=== PATIENT | male | born 1955 | race African-American/Black ===

== ENCOUNTER 2018-09-17 05:05 | Inpatient (IN) ==
[2018-09-08 12:52] LABS: Basophils % 0.4 % (0.0-0.8); Eosinophils # 0.2 10*3/uL (0.0-0.87); Eosinophils % 2.9 % (0.00-10.9); Hematocrit 49.7 VOL% (42.0-52.0); Hemoglobin 16.3 GM/DL (14.0-18.0); Immature Granulocytes % 0.2 %; Immature Granulocytes Absolute 0.01 #; Lymphocytes # 1.2 10*3/uL (1.4-4.0); Lymphocytes % 23.6 % (21.2-54.2); Mean Corpuscular HGB Conc 32.8 GM/DL (32-36); Mean Corpuscular Volume 86.4 FL (87-102); Mean Platelet Volume 10.7 FL (9.6-12.0); Monocytes % 8.6 % (1.7-12.7); Neutrophils % 64.3 % (38.7-73.9); Platelet Count 217 T/CUMM (130-400); Red Blood Count 5.75 MC/CUMM (3.8-5.5); Red Cell Distribution Width 13.6 % (9.3-17.3); White Blood Count 5.1 T/CUMM (4-12)
[2018-09-08 13:12] LABS: Calcium 9.4 MG/DL (8.5-10.1); Osmolality,Calculated 279.5 MOS/KG (273-304)
[2018-09-08 13:13] LABS: Apearance,Urine CLEAR (Clear); Bacteria,Urine Occasional /HPF (Few); Bilirubin,Urine Negative (Negative); Blood, Urine Negative (Negative); Glucose,Urine (UA) Negative (Negative); Hyaline Casts,Urine 4 /LPF (0-3); Ketones,Urine Negative (Negative); Mucus,Urine Few /LPF (Occasional); Nitrite,Urine Negative (Negative); Protein,Urine 100 MG/DL; RBC,Urine <1 /HPF (0-4); Squamous Epithelial Cell,Urine Occasional /HPF (0-10); Urine Color Yellow (Yellow); Urine Specific Gravity 1.021 (1.001-1.035); Urine Urobilinogen < 2.0 EU/DL (0.2-1.0); WBC,Urine 2 /HPF (0-6)
[~2018-09-17 05:05] MED LIST: NALOXONE 0.4 MG/ML VIAL IV PRN
[2018-09-17] MEDS ORDERED: cefTRIAXone 1,000 MG VIAL ONE (05:55)
[2018-09-17] MEDS ORDERED: FAMOTIDINE 20 MG TABLET ONE (05:55)
[2018-09-17] MEDS ORDERED: ALVIMOPAN 12 MG CAPSULE ONE (05:55)
[2018-09-17] MEDS ORDERED: ALVIMOPAN 12 MG CAPSULE PO ONE (06:00)
[2018-09-17] MEDS ORDERED: LACTATED RINGERS 1,000 ML IV SCH (06:00)
[2018-09-17] MEDS ORDERED: FAMOTIDINE 20 MG TABLET PO ONE (06:00)
[2018-09-17] MEDS ORDERED: cefTRIAXone 1,000 MG in SYRINGE 1 EACH IV ONE (06:00)
[2018-09-17] MEDS ORDERED: PROPOFOL 200 MG/20 ML VIAL IV ONE (09:47)
[2018-09-17] MEDS ORDERED: SEVOFLURANE 1 UNIT/15 MINUTE INH ONE (09:47)
[2018-09-17 09:48] LABS: Apearance,Urine CLEAR (Clear); Bilirubin,Urine Negative (Negative); Blood, Urine Negative (Negative); Glucose,Urine (UA) Negative (Negative); Ketones,Urine Negative (Negative); Mucus,Urine Occasional /LPF (Occasional); Nitrite,Urine Negative (Negative); Protein,Urine 30 MG/DL; RBC,Urine 1 /HPF (0-4); Urine Color Yellow (Yellow); Urine Specific Gravity 1.018 (1.001-1.035); Urine Urobilinogen < 2.0 EU/DL (0.2-1.0); WBC,Urine <1 /HPF (0-6)
[2018-09-17] MEDS ORDERED: ACETAMINOPHEN 1,000 MG/100 ML VIAL IV ONE (09:48)
[2018-09-17] MEDS ORDERED: ePHEDrine 50 MG/ML AMP ONE (09:48)
[2018-09-17] MEDS ORDERED: ONDANSETRON 4 MG/2 ML VIAL ONE (09:48)
[2018-09-17] MEDS ORDERED: GLYCOPYRROLATE 0.4 MG/2 ML VIAL ONE (09:48)
[2018-09-17] MEDS ORDERED: MIDAZOLAM 2 MG/2 ML VIAL ONE (09:48)
[2018-09-17] MEDS ORDERED: DEXAMETHASONE 4 MG/1 ML VIAL ONE (09:48)
[2018-09-17] MEDS ORDERED: ROCURONIUM 100 MG/10 ML VIAL IV ONE (09:48)
[2018-09-17] MEDS ORDERED: NEOSTIGMINE 10 MG/10 ML VIAL ONE (09:49)
[2018-09-17] MEDS ORDERED: LACTATED RINGERS 1,000 ML IV ONE (09:49)
[2018-09-17] MEDS ORDERED: HYDROmorphone PCA 30 MG/30 ML SYRINGE IV ONE (09:52)
[2018-09-17] MEDS: HYDROmorphone PCA 30 MG/30 ML SYRINGE IV SCH (09:54)
[2018-09-17] MEDS: SODIUM CHLORIDE 0.9% 1,000 ML IV SCH ×2 (11:26→21:11)
[2018-09-17] MEDS ORDERED: GLUCAGON 1 MG VIAL IM PRN (14:49)
[2018-09-17] MEDS ORDERED: DEXTROSE 50% 25 GM/50 ML VIAL IV PRN (14:49)
[2018-09-17] MEDS: INSULIN REGULAR 100 UNIT/ML SUBCUT SCH ×2 (16:32→23:10)
[2018-09-17] MEDS: ALVIMOPAN 12 MG CAPSULE PO SCH (21:11)
[2018-09-17] MEDS: METOPROLOL TARTRATE 50 MG TABLET PO SCH (21:11)
[2018-09-18 05:32] LABS: Basophils % 0.1 % (0.0-0.8); Hematocrit 46.3 VOL% (42.0-52.0); Hemoglobin 15.6 GM/DL (14.0-18.0); Immature Granulocytes % 0.3 %; Immature Granulocytes Absolute 0.03 #; Lymphocytes # 0.7 10*3/uL (1.4-4.0); Lymphocytes % 7.6 % (21.2-54.2); Mean Corpuscular HGB Conc 33.7 GM/DL (32-36); Mean Corpuscular Volume 85.6 FL (87-102); Mean Platelet Volume 11.5 FL (9.6-12.0); Monocytes % 10.1 % (1.7-12.7); Neutrophils % 81.9 % (38.7-73.9); Platelet Count 183 T/CUMM (130-400); Red Blood Count 5.41 MC/CUMM (3.8-5.5); Red Cell Distribution Width 13.8 % (9.3-17.3); White Blood Count 8.7 T/CUMM (4-12)
[2018-09-18 06:05] LABS: Calcium 8.4 MG/DL (8.5-10.1); Osmolality,Calculated 286.4 MOS/KG (273-304)
[2018-09-18 06:26] LABS: Band Neutrophils 1 % (0-10); Lymphocytes 6 % (20-55); Segmented Neutrophils 85 % (50-85); Total Cells Counted 100
[2018-09-18 06:27] LABS: Hypochromasia Slight; Platelet Estimate Normal
[2018-09-18] MEDS: LEVOTHYROXINE 25 MCG TABLET PO SCH (06:47)
[2018-09-18] MEDS: SODIUM CHLORIDE 0.9% 1,000 ML IV SCH ×2 (06:47→15:50)
[2018-09-18] MEDS: INSULIN REGULAR 100 UNIT/ML SUBCUT SCH ×4 (07:43→20:18)
[2018-09-18] MEDS: ALVIMOPAN 12 MG CAPSULE PO SCH ×2 (08:03→20:18)
[2018-09-18] MEDS: amLODIPine 10 MG TABLET PO SCH (08:03)
[2018-09-18] MEDS: METOPROLOL TARTRATE 50 MG TABLET PO SCH ×2 (08:03→20:19)
[2018-09-18] MEDS: CYANOCOBALAMIN 500 MCG TABLET PO SCH (08:03)
[2018-09-18] MEDS: FUROSEMIDE 40 MG TABLET PO SCH (08:03)
[2018-09-18] MEDS: FERROUS SULFATE 325 MG TABLET PO SCH (08:03)
[2018-09-18] MEDS ORDERED: oxyCODONE/ACETAMINOPHEN 5-325 MG TABLET PO PRN (11:27)
[2018-09-18] MEDS: HYDROmorphone PCA 30 MG/30 ML SYRINGE IV SCH (12:47)
[2018-09-18] MEDS ORDERED: cloNIDine 0.1 MG TABLET PO PRN (14:02)
[2018-09-19] MEDS: SODIUM CHLORIDE 0.9% 1,000 ML IV SCH ×3 (01:29→11:49)
[2018-09-19] MEDS: LEVOTHYROXINE 25 MCG TABLET PO SCH (06:09)
[2018-09-19] MEDS: ALVIMOPAN 12 MG CAPSULE PO SCH (08:51)
[2018-09-19] MEDS: FUROSEMIDE 40 MG TABLET PO SCH (08:51)
[2018-09-19] MEDS: METOPROLOL TARTRATE 50 MG TABLET PO SCH (08:51)
[2018-09-19] MEDS: CYANOCOBALAMIN 500 MCG TABLET PO SCH (08:51)
[2018-09-19] MEDS: FERROUS SULFATE 325 MG TABLET PO SCH (08:51)
[2018-09-19] MEDS: amLODIPine 10 MG TABLET PO SCH (08:52)
[2018-09-19] MEDS: INSULIN REGULAR 100 UNIT/ML SUBCUT SCH ×2 (10:50→12:14)
[2018-09-19 12:17] VITALS: BP 159/105
== END 2018-09-19 13:25 | disposition home or self-care (01) | DRG 442 ==
LOC: N.OR 05:05 → N.SDSINP 05:05 → N.5E 10:44
PROVIDERS: ADMIT Urology; ATTEND Urology